=== PATIENT | female | born 1940 | race Caucasian/White ===

== ENCOUNTER 2017-09-29 22:24 | Inpatient (IN) ==
[2017-09-29 23:22] LABS: Basophils # 0.1 K/mcL (0.0-0.2); Basophils % 0.8 %; Eosinophils # 0.2 K/mcL (0.0-0.6); Eosinophils % 2.9 %; Hematocrit 26.1 % (35.3-44.9); Hemoglobin 8.7 g/dL (11.5-15.4); Immature Granulocytes % 0.2 % (0-4); Lymphocytes # 5.4 K/mcL (0.6-4.6); Lymphocytes % 65.1 %; Mean Corpuscular HGB Conc 33.3 g/dL (31.6-35.5); Mean Corpuscular Hemoglobin 37.7 pg (28.0-33.3); Mean Platelet Volume 8.4 fL (9.4-12.4); Monocytes % 11.8 %; Neutrophils # 1.6 K/mcL (1.6-8.9); Platelet Count 570 K/mcL (140-400); Red Blood Count 2.31 M/mcL (3.82-4.97); Red Cell Distribution Width 15.6 % (11.5-14.5); Segmented Neutrophils % 19.2 %
[2017-09-29 23:27] LABS: Prothrombin Time 10.9 Seconds (9.4-12.1)
[2017-09-29 23:30] LABS: Activated Partial Thrombo Time 28.6 Seconds (26.0-36.0)
[2017-09-29 23:36] LABS: BUN/Creatinine Ratio 28 (6-26); Blood Urea Nitrogen 25 mg/dL (7-20); Carbon Dioxide 20 mEq/L (19-29); Chloride 103 mEq/L (98-109); Glucose 115 mg/dL (70-99); Potassium 3.7 mEq/L (3.5-4.5); Sodium 134 mEq/L (136-145); eGFR For African Americans > 60 (> 60); eGFR For Non-African Americans > 60 (> 60)
[2017-09-29 23:37] LABS: Alanine Aminotransferase 18 Units/L (0-55); Albumin 3.8 g/dL (3.5-5.0); Albumin/Globulin Ratio 1.2 (1.1-2.2); Alkaline Phosphatase 80 Units/L (38-126); Aspartate Amino Transferase 19 Units/L (5-34); Bilirubin,Direct 0.2 mg/dL (0.0-0.5); Bilirubin,Indirect 0.1 mg/dL (0.0-1.2); Bilirubin,Total 0.3 mg/dL (0.2-1.2); Globulin 3.2 g/dL (2.4-3.5); Lipase 28 Units/L (8-78); Osmolality,Calculated 283 (280-300)
[2017-09-29 23:40] LABS: Platelet Estimate Increased (Normal)
[2017-09-29 23:41] LABS: Anisocytosis 1+ (Not Present); Hypochromasia Present (Not Present); Macrocytosis Present (Not Present); Microcytosis Present (Not Present)
--- NOTE | 2017-09-29 23:52 | Emergency Department Note ---
Disposition Clinical Impression: Chronic anemia, GI bleed, Cholelithiasis, External hemorrhoid, Diverticulosis Disposition: Admitted As Inpatient Condition: Good Referrals: Jamel Jacobo DO [Primary Care Provider] - Forms: ED Satisfaction Letter Time of Disposition: 01:28 GI Bleed HPI - General Chief complaint: ED GI Bleed Stated complaint: Rectal bleeding Time Seen by Provider: 09/29/17 22:55 Source: patient, family Limitations: no limitations Nursing Notes Reviewed: Yes Vital Signs Reviewed: Yes - History of Present Illness HPI Narrative: 77-year-old female presents to the emergency room for rectal bleeding. Onset earlier this evening. No history of this. States she went to the bathroom to urinate and passed a bunch of blood from her rectum into the toilet. She states it was bright red and slightly dark. Denies any clots. States she has a known hemorrhoid. She denies any blood from the vagina. She denies abdominal pain. No fevers or chills. No other complaints at this time. Patient has a history of chronic leukemia. She follows with hematology. She has had a previous workup for anemia as well. She denies any colonoscopy or EGD. She denies any peptic ulcer complaints. No heartburn. No upper GI problems. - Related Data Home Medications Medication Instructions Recorded Confirmed Amlodipine Besylate/Benazepril 1 each PO DAILY 09/05/17 09/14/17 [Lotrel 5-20 mg Capsule] Aspirin [Lo-Dose Aspirin EC] 81 mg PO DAILY 09/05/17 09/14/17 Benazepril HCl [Lotensin] 20 mg PO DAILY 09/05/17 09/14/17 Indapamide [Lozol] 2.5 mg PO DAILY 09/05/17 09/14/17 amLODIPine [Norvasc] 5 mg PO DAILY 09/05/17 09/14/17 Ferrous Sulfate [Iron] 325 mg PO DAILY 09/14/17 09/14/17 Allergies Allergy/AdvReac Type Severity Reaction Status Date / Time No Known Allergies Allergy Verified 09/05/17 10:48 Review of Systems: Gen.: No fevers or chills or new weakness Eyes: Denies double vision or any vision changes Ears: Denies any otalgia Pharynx: Denies sore throat CV: Denies chest pain. Denies palpitations Respiratory: Denies any cough or sputum production. No shortness of breath. GI: Denies any nausea, vomiting, diarrhea, constipation. Denies abdominal pain Neuro: Denies any headache. No problems with ambulation. No numbness. Skin: Denies any rashes or abrasions Psych: Denies any depression or suicidal or homicidal ideation Musculoskeletal: Denies any arthralgias or myalgias Past Medical History - Past Medical History Medical history: Reports: hypertension, renal disease Surgical history: Reports: VERONICA/BSO Psychiatric history: Reports: no psych history - Social History Smoking Status: Never smoker Smokeless Tobacco Status: No Alcohol use: Reports: none Drug use: Reports: none Physical Exam - General Limitations: no limitations General appearance: alert, in no apparent distress - Head Head exam: atraumatic, normocephalic - ENT ENT exam: normal exam, normal oropharynx - Neck Neck exam: Present: normal inspection - Chest Chest inspection: Present: normal inspection - Respiratory Respiratory exam: Present: normal lung sounds bilaterally. Absent: respiratory distress - Cardiovascular Cardiovascular exam: Present: regular rate, normal rhythm - Abdominal Exam Abdominal exam: Present: soft, Non-Tender, normal bowel sounds. Absent: tenderness, distention, guarding, rebound, diminished bowel sounds - Rectal Exam Systems Accountant present during exam: No Rectal exam: Present: normal rectal tone, heme (+) stool, other (You can see obvious maroon-colored blood around the rectal area. There is a hemorrhoid noted at the 11o'clock position. No active bleeding from that. That external hemorrhoid appears okay.) - Extremities Exam Extremities exam: Present: normal inspection - Expanded Lower Extremity Exam Hip/Pelvis exam: Present: normal inspection - Back Exam Back exam: Present: normal inspection - Neurological Exam Neurological exam: Present: alert, oriented X3 - Psychiatric Psychiatric exam: Present: normal affect, normal mood - Skin Skin exam: Present: warm, dry, intact Course Vital Signs Temperature 98.2 F 09/29/17 22:49 Pulse Rate 111 09/29/17 22:49 Respiratory Rate 18 09/29/17 22:49 Blood Pressure 147/75 09/29/17 22:49 O2 Sat by Pulse Oximetry 96 09/29/17 22:49 Temperature 98.2 F 09/29/17 22:49 Pulse Rate 111 09/29/17 22:49 Respiratory Rate 18 09/29/17 22:49 Blood Pressure 147/75 09/29/17 22:49 O2 Sat by Pulse Oximetry 96 09/29/17 22:49 Oxygen Delivery Oxygen Delivery Room Air GI Bleed - MDM Narrative Medical decision making narrative: CT shows no GI pathology other than she does have a gallstone. She does however have a possible ascending aneurysm in the chest. Also incidental note of possible pyelitis on the CT scan. I have ordered a urinalysis. Her H&H is stable for her. She is not hypotensive. She has no abdominal pain. I think based on her age and her complaint and the fact that she still having some GI bleeding that we admit the patient. Family was updated. She has ok with this plan. I did consult with the hospitalist as well. - Medical Records Medical records reviewed: Yes I reviewed the patient's medical records. - Lab Data Lab results reviewed: Yes I reviewed the patient's lab results. Result diagrams: 09/29/17 23:12 09/29/17 23:12 Lab Results 09/29/17 09/29/17 09/29/17 Range/Units 23:12 23:12 23:12 WBC 8.3 (4.3-11.1) K/mcL RBC 2.31 L (3.82-4.97) M/mcL Hgb 8.7 L (11.5-15.4) g/dL Hct 26.1 L (35.3-44.9) % MCV 113.0 H (83.0-100.0) fL MCH 37.7 H (28.0-33.3) pg MCHC 33.3 (31.6-35.5) g/dL RDW 15.6 H (11.5-14.5) % Plt Count 570 H (140-400) K/mcL MPV 8.4 L (9.4-12.4) fL Immature Gran % 0.2 (0-4) % Seg Neutrophils % 19.2 % Lymphocytes % 65.1 % Monocytes % 11.8 % Eosinophils % 2.9 % Basophils % 0.8 % Neutrophils # 1.6 (1.6-8.9) K/mcL Lymphocytes # 5.4 H (0.6-4.6) K/mcL Monocytes # 1.0 (0.0-1.3) K/mcL Eosinophils # 0.2 (0.0-0.6) K/mcL Basophils # 0.1 (0.0-0.2) K/mcL Platelet Estimate Increased H (Normal) Hypochromasia Present A (Not Present) Anisocytosis 1+ A (Not Present) Microcytosis Present A (Not Present) Macrocytosis Present A (Not Present) PT 10.9 (9.4-12.1) Seconds INR 1.0 APTT 28.6 (26.0-36.0) Seconds Sodium 134 L (136-145) mEq/L Potassium 3.7 (3.5-4.5) mEq/L Chloride 103 (98-109) mEq/L Carbon Dioxide 20 (19-29) mEq/L BUN 25 H (7-20) mg/dL Creatinine 0.89 (0.57-1.11) mg/dL Est GFR ( Amer) > 60 (> 60) Est GFR (Non-Af Amer) > 60 (> 60) BUN/Creatinine Ratio 28 H (6-26) Glucose 115 H (70-99) mg/dL Calculated Osmolality 283 (280-300) Calcium 9.0 (8.6-10.8) mg/dL Total Bilirubin 0.3 (0.2-1.2) mg/dL Direct Bilirubin 0.2 (0.0-0.5) mg/dL Indirect Bilirubin 0.1 (0.0-1.2) mg/dL AST 19 (5-34) Units/L ALT 18 (0-55) Units/L Alkaline Phosphatase 80 (38-126) Units/L Serum Total Protein 7.0 (6.0-8.3) g/dL Albumin 3.8 (3.5-5.0) g/dL Globulin 3.2 (2.4-3.5) g/dL Albumin/Globulin Ratio 1.2 (1.1-2.2) Lipase 28 (8-78) Units/L - Radiology Data Radiology results reviewed: Yes I reviewed the patient's radiology results. Critical Care Time Critical Care Time: No
[2017-09-30] MEDS ORDERED: Naloxone 0.4 MG/ML INJ IVP PRN (01:36)
[2017-09-30] MEDS: 0.9 % Sodium Chloride 1,000 ML IVC SCH (01:40)
[2017-09-30 01:42] LABS: Bilirubin,Urine Negative (Negative); Blood,Urine Trace (Negative); Clarity,Urine Clear (Clear); Color,Urine Yellow (Yellow); Glucose,Urine (UA) Normal (Normal); Ketones,Urine Negative (Negative); Leukocyte Esterase,Urine Small (Negative); Nitrite,Urine Negative (Negative); PH,Urine 6.5 pH Units (5.0-8.0); Protein,Urine Negative (Neg-Trace); Specific Gravity,Urine 1.029 (1.010-1.025); Urobilinogen,Urine Normal (Normal)
--- NOTE | 2017-09-30 01:42 | Internal Med History&Physical ---
Date of Encounter: 09/30/17 Time of Encounter: 01:40 Assessment and Plan (1) GI bleed Current visit: Yes Status: Acute trend H&H possible internal hemorrhoid vs. diverticular ?? Consult GI to eval Clears IVF close monitoring inpatient Qualifiers: GI bleed type/associated pathology: anorectal hemorrhage Qualified Code(s) : K62.5 - Hemorrhage of anus and rectum (2) HTN (hypertension), benign Current visit: Yes Status: Acute continue anti-HTN (3) Iron deficiency anemia Current visit: No Status: Acute hold home Fe while inpatient Qualifiers: Iron deficiency anemia type: other iron deficiency Qualified Code(s): D50.8 - Other iron deficiency anemias (4) Pyelitis Current visit: Yes Status: Acute on CT imaging, does not appear to have clinical correlate monitor for now (5) Abdominal aneurysm Current visit: Yes Status: Acute outpatient eval (6) Liver lesion Current visit: Yes Status: Acute incidentalomas in liver and adrenal. follow up outpatient. Internal Medicine - H&P: HPI Chief complaint: rectal bleed History of present illness: Ms. Danielle is a 77 year old female who presents with acute LGIB, rectal bleed. She developed red, BRBPR this afternoon. Had several episodes after leading to presentation to the ED. Denies clots. Denies BM with bleeding. Reports episodes with urination as well. Denies prior hx of C-scope. PMH significant for some Fe deficiency anemia and T-LGL seeing oncology. CT/CT abd pelvis w iv no oral IMPRESSION: 1. Diverticulosis without scan evidence for diverticulitis. 2. Partially imaged is what appears to be an aneurysm of the ascending aorta. Contrast-enhanced chest CT is recommended for further evaluation. 3. Bilateral urothelial enhancement suggests pyelitis. 4. Possible bladder prolapse. 5. The low-density liver lesions and the left adrenal gland lesion are indeterminate. 6. Cholelithiasis without evidence for acute cholecystitis. Past Med Surg Social Fam HX - Past Medical History Medical history: hypertension, renal disease Psychiatric history: no psych history - Past Surgical History Surgical History: VERONICA/BSO - Social History Smoking Status: Never smoker Smokeless Tobacco Status: No Alcohol use: none Drug use: none Internal Medicine - H&P: Meds Amlodipine Besylate/Benazepril [Lotrel 5-20 mg Capsule] 1 each PO DAILY [History] Aspirin [Lo-Dose Aspirin EC] 81 mg PO DAILY 09/05/17 [History] Benazepril HCl [Lotensin] 20 mg PO DAILY 09/05/17 [History] Indapamide [Lozol] 2.5 mg PO DAILY 09/05/17 [History] amLODIPine [Norvasc] 5 mg PO DAILY 09/05/17 [History] Ferrous Sulfate [Iron] 325 mg PO DAILY 09/14/17 [History] 3 Allergy/AdvReac Type Severity Reaction Status Date / Time No Known Allergies Allergy Verified 09/05/17 10:48 All Systems PM: A 10-system review of systems was performed and is negative for pertinent findings except as documented above in the HPI. Review of systems: ROS 14 point review of systems reviewed as best as possible given presentation. Pertinent positive or negative as per HPI or otherwise reviewed as negative - Constitutional Vitals: Temp Pulse Resp BP Pulse Ox 98.2 F 111 18 147/75 96 09/29/17 22:49 09/29/17 22:49 09/29/17 22:49 09/29/17 22:49 09/29/17 22:49 Exam: General - AAO x 3 Psych - Appropriate affect/speech. No agitation Eyes - JOHANNA. Eye lids intact. No scleral icterus Heart - Sinus. RRR. S1 and S2 present. No added HS/murmurs appreciated. No elevated JVD appreciated. Lung - Adequate air entry b/l, No crackles/wheezes appreciated GI - Soft, non-tender. No hepatosplenomegaly/ascites. BS+ - No CVA/suprapubic tenderness or palpable bladder distension Skin - Intact. No rash/petechiae/ecchymosis. Warm extremities MSK - Joints with normal ROM. No joint swellings Internal Med - H&P Results - Labs CBC & Chem 7: 09/29/17 23:12 09/29/17 23:12 - Impressions ITS Impressions Abdomen/Pelvis CT 09/30/17 23:47 IMPRESSION: 1. Diverticulosis without scan evidence for diverticulitis. 2. Partially imaged is what appears to be an aneurysm of the ascending aorta. Contrast-enhanced chest CT is recommended for further evaluation. 3. Bilateral urothelial enhancement suggests pyelitis. 4. Possible bladder prolapse. 5. The low-density liver lesions and the left adrenal gland lesion are indeterminate. 6. Cholelithiasis without evidence for acute cholecystitis. D/ / Praneeth Khan MD / Praneeth Khan MD Interpreting Provider: Praneeth Khan MD
[2017-09-30 01:44] LABS: Bacteria,Urine Many per hpf (None-Few); Hyaline Casts,Urine None Seen per lpf (None-Few); RBC,Urine 0-3 per hpf (0-3); Squamous Epithelial Cell,Urine Moderate per lpf (None-Few)
[2017-09-30 06:53] LABS: Hematocrit 22.2 % (35.3-44.9); Hemoglobin 7.5 g/dL (11.5-15.4)
[2017-09-30] MEDS ORDERED: *HR* Midazolam HCl 5 MG/5 ML VIAL IVP ONE ×2 (07:30→08:24)
[2017-09-30] MEDS ORDERED: *HR* FentaNYL (PF) 100 MCG/2 ML VIAL ONE (07:30)
[2017-09-30] MEDS ORDERED: Tetracaine/Benzocaine/Butamben 200MG/SPRAY (100SPY/BOT) MM ONE (08:24)
[2017-09-30] MEDS ORDERED: Simethicone 40 MG/0.6 ML MLS IR ONE (08:24)
[2017-09-30] MEDS ORDERED: *HR* FentaNYL (PF) 100 MCG/2 ML VIAL IVP ONE (08:24)
[2017-09-30] MEDS ORDERED: SODIUM CHLORIDE/NAHCO3/KCL/PEG 4,000 ML SOLN.RECON PO ONE (09:03)
--- NOTE | 2017-09-30 09:47 | Gastroenterology Consult Note ---
Date of Encounter: 10/01/17 Time of Encounter: 08:15 - Time Spent With Patient Total time spent is greater than 50% in coordination of care (as documented) at patient's floor/unit and/or counseling patient: ' 1. Hematochezia: Plan EGD today and colonoscopy tomorrow. Differential diagnosis wide. Follow H/H closely. Discussed plan with patient and her daughter, Radha. 2. Hypertension 3. Anxiety 4. Incomplete database GI History of Present Illness - Data of Consult Requesting Physician: Umm Weeks MD - Consult Narrative History of present illness: Ms. Danielle is a 77 year old female who presents with several episodes of hematochezia (burgundy mixed with BRBPR) over the past 24 hours. No dizziness or chest pain or syncope. No UGI symptoms. Never had colonoscopy. Youngest sister had renal cancer. 5 children oldest in MVA. Baby ASA once daily. No family hx of IBD Past Med Surg Social Fam HX - Past Medical History Medical history: hypertension, renal disease Psychiatric history: no psych history - Past Surgical History Surgical History: VERONICA/BSO - Social History Smoking Status: Never smoker Smokeless Tobacco Status: No Alcohol use: none Drug use: none - Family History Sister Hx Family Endocrine Disorder: Yes (Kidney cancer) Mother Hx Family Cancer: Yes (Breast cancer) - Gastrointestinal Gastrointestinal: Present: hematochezia - Endocrine Endocrine IM: Present: fatigue - Constitutional Vitals: Temp Pulse Resp BP Pulse Ox 98.6 F 92 16 129/62 95 09/30/17 07:39 09/30/17 08:44 09/30/17 08:44 09/30/17 08:44 09/30/17 08:44 - Eye Eye exam: Present: EOMI, PERRL Additional comments: pallor mild - GI/Abdominal GI/Abdominal exam: Present: soft Results - Labs CBC & Chem 7: 10/01/17 12:00 09/29/17 23:12 Labs: Last Result Calcium 9.0 mg/dL (8.6-10.8) 09/29/17 23:12 Entire Visit Hgb 7.5 g/dL (11.5-15.4) L 09/30/17 06:43 Hct 22.2 % (35.3-44.9) L 09/30/17 06:43 PT 10.9 Seconds (9.4-12.1) 09/29/17 23:12 Total Bilirubin 0.3 mg/dL (0.2-1.2) 09/29/17 23:12 AST 19 Units/L (5-34) 09/29/17 23:12 ALT 18 Units/L (0-55) 09/29/17 23:12 Lipase 28 Units/L (8-78) 09/29/17 23:12 - ABG ABG results: PT/INR, D-dimer PT 10.9 Seconds (9.4-12.1) 09/29/17 23:12 - Impressions Impressions Abdomen/Pelvis CT 09/30/17 23:47 IMPRESSION: 1. Diverticulosis without scan evidence for diverticulitis. 2. Partially imaged is what appears to be an aneurysm of the ascending aorta. Contrast-enhanced chest CT is recommended for further evaluation. 3. Bilateral urothelial enhancement suggests pyelitis. 4. Possible bladder prolapse. 5. The low-density liver lesions and the left adrenal gland lesion are indeterminate. 6. Cholelithiasis without evidence for acute cholecystitis. D/ / Praneeth Khan MD / Praneeth Khan MD Interpreting Provider: Praneeth Khan MD Consult Discharge Plan - Plan Referrals: Jamel Jacobo DO [Primary Care Provider] -
[2017-09-30 11:57] LABS: Hematocrit 23.4 % (35.3-44.9); Hemoglobin 7.8 g/dL (11.5-15.4)
[2017-09-30] MEDS: amLODIPine 5 MG TABLET PO SCH ×2 (12:08→12:09)
[2017-09-30] MEDS: Lisinopril 20 MG TABLET PO SCH (12:09)
[2017-09-30 14:26] LABS: % Iron Saturation 49 % (15-50); Iron 125 mcg/dL (50-170); Transferrin 182 mg/dL (180-382)
--- NOTE | 2017-09-30 15:16 | Internal Med Progress Note ---
Date of Encounter: 09/30/17 Time of Encounter: 13:00 - Assessment and plan (1) GI bleed Current Visit: Yes Status: Acute Assessment and plan: Acute Lower GI bleed possible due to hemmorhoids however CT showed diverticulosis too.. concerned for diverituclar bleeding cont close monitoring Hb scheduled for Colonoscopy in AM Qualifiers: GI bleed type/associated pathology: anorectal hemorrhage Qualified Code(s) : K62.5 - Hemorrhage of anus and rectum (2) Anemia Current Visit: No Status: Acute Assessment and plan: Baseline around 9.5 today her Hb @ 7.5 cont close monitoring will transfuse if Hb < 7.0 s/p EGD- gastritis only cont PPI Qualifiers: Other causes of anemia: acute posthemorrhagic Qualified Code(s): D62 - Acute posthemorrhagic anemia (3) Cholelithiasis Current Visit: Yes Status: Chronic Assessment and plan: mostly chronic no acute RUQ pain need out pt f/u Qualifiers: Qualified Code(s): K80.20 - Calculus of gallbladder without cholecystitis without obstruction (4) External hemorrhoid Current Visit: Yes Status: Acute (5) Diverticulosis Current Visit: Yes Status: Acute Assessment and plan: no pain..no signs of inf no need of abx Qualifiers: Qualified Code(s): K57.10 - Diverticulosis of small intestine without perforation or abscess without bleeding (6) HTN (hypertension), benign Current Visit: Yes Status: Acute Assessment and plan: resumed home meds (7) Pyelitis Current Visit: Yes Status: Acute Assessment and plan: incidental finding UA- bacteria + WBC++ will start her on empirical abx and f/u on urine cx (8) Iron deficiency anemia Current Visit: No Status: Chronic Assessment and plan: check iron levels in AM Qualifiers: Iron deficiency anemia type: other iron deficiency Qualified Code(s): D50.8 - Other iron deficiency anemias - Subjective Interval history: Ms. Danielle is a 77 year old female with known PMH of HTN, T cell large granular leukemia, chronic Iron def anemia who follows with Heme Onc and gets frequent IV Iron transfusion, who presented to ER with rectal bleed BRBPR started y/d. Had several episodes after leading to presentation to the ED. She just came back from EGD. Denied any more diarrhea. She denied any abdominal pain. - Constitutional Vitals: Temp Pulse Resp BP Pulse Ox 97.7 F 91 16 130/73 94 09/30/17 12:39 09/30/17 12:39 09/30/17 12:39 09/30/17 12:39 09/30/17 12:39 General appearance: Present: A&O X 3, no acute distress, answers questions appropriately - Head Head exam: Present: atraumatic, normal inspection - Neck Neck exam general surgery: Present: supple - Cardiovascular Cardiovascular exam: Present: RRR, +S1, +S2. Absent: systolic murmur - GI/Abdominal GI/Abdominal exam: Present: normal bowel sounds, soft. Absent: pulsatile mass, rigid, tenderness - Extremities Exam Extremities exam: Absent: calf tenderness, pedal edema, tenderness - Back Exam Back exam: Absent: CVA tenderness (L), CVA tenderness (R) - Neurological Exam Neurological exam: Present: alert, oriented X3 - Psychiatric Psychiatric exam: Present: normal affect, normal mood Internal Medicine: Result - Labs CBC & Chem 7: 09/30/17 11:47 09/29/17 23:12 Labs: Short CBC 09/30/17 09/30/17 Range/Units 06:43 11:47 Hgb 7.5 L 7.8 L (11.5-15.4) g/dL Hct 22.2 L 23.4 L (35.3-44.9) % - ABG Interpretation ABG results: PT/INR, D-dimer PT 10.9 Seconds (9.4-12.1) 09/29/17 23:12 - Impressions Impressions Abdomen/Pelvis CT 09/30/17 23:47 IMPRESSION: 1. Diverticulosis without scan evidence for diverticulitis. 2. Partially imaged is what appears to be an aneurysm of the ascending aorta. Contrast-enhanced chest CT is recommended for further evaluation. 3. Bilateral urothelial enhancement suggests pyelitis. 4. Possible bladder prolapse. 5. The low-density liver lesions and the left adrenal gland lesion are indeterminate. 6. Cholelithiasis without evidence for acute cholecystitis. D/ / Praneeth Khan MD / Praneeth Khan MD Interpreting Provider: Praneeth Khan MD Consult Discharge Plan - Plan Referrals: Jamel Jacobo DO [Primary Care Provider] -
[2017-09-30 18:37] LABS: Hematocrit 25.6 % (35.3-44.9); Hemoglobin 8.8 g/dL (11.5-15.4)
[2017-10-01 01:18] LABS: Hematocrit 23.3 % (35.3-44.9); Hemoglobin 7.9 g/dL (11.5-15.4)
[2017-10-01] MEDS: 0.9 % Sodium Chloride 1,000 ML IVC SCH ×2 (05:05→19:20)
[2017-10-01] MEDS ORDERED: *HR* Midazolam HCl 5 MG/5 ML VIAL IVP ONE ×2 (07:50→08:29)
[2017-10-01] MEDS ORDERED: *HR* FentaNYL (PF) 100 MCG/2 ML VIAL ONE (07:51)
[2017-10-01] MEDS ORDERED: Simethicone 40 MG/0.6 ML MLS IR ONE (08:29)
[2017-10-01] MEDS ORDERED: *HR* FentaNYL (PF) 100 MCG/2 ML VIAL IVP ONE (08:29)
--- NOTE | 2017-10-01 08:30 | History & Physical Report ---
Date of Encounter: 10/01/17 Time of Encounter: 08:30 24 Hour HP Update - Instructions Instructions: If the History and Physical is less than 30 days old and was completed prior to A.M. admission and or procedure and has NOT been updated on calendar day of procedure please complete this update prior to performing procedure. - Update Patient reports changes in Medical Condition: No Changes in examination, assessment, or condition: No Changes in Medication: No Preop tests/diagnostics Reviewed: Yes Surgery Remains Indicated: Yes Consent for Planned Operative Procedure(s) Verified: Yes - Pre-Operative Checklist Preoperative Checklist Indicated: Yes Prophylactic Antibiotic Ordered: No
[2017-10-01 08:53] LABS: Hematocrit 23.6 % (35.3-44.9)
[2017-10-01] MEDS: amLODIPine 5 MG TABLET PO SCH ×2 (10:55)
[2017-10-01] MEDS: Lisinopril 20 MG TABLET PO SCH (10:55)
[2017-10-01 12:14] LABS: Hematocrit 23.2 % (35.3-44.9); Hemoglobin 7.9 g/dL (11.5-15.4)
--- NOTE | 2017-10-01 15:39 | Internal Med Progress Note ---
Date of Encounter: 10/01/17 Time of Encounter: 15:34 - Assessment and plan (1) GI bleed Current Visit: Yes Status: Acute Assessment and plan: Acute Lower GI bleed s/p colonoscopy showed diverticulosis and internal hemorrhoid bleeding, however CT showed diverticulosis too.. concerned for diverituclar bleeding cont close monitoring Hb- so far stable Hb @ 7.9 Qualifiers: GI bleed type/associated pathology: anorectal hemorrhage Qualified Code(s) : K62.5 - Hemorrhage of anus and rectum (2) Anemia Current Visit: No Status: Acute Assessment and plan: Baseline around 9.5 today her Hb @ 7.9 cont close monitoring will transfuse if Hb < 7.0 s/p EGD- gastritis only s/p Colonocospy cont PPI Reviewed Iron studies.. No need of Iron supplements Qualifiers: Other causes of anemia: acute posthemorrhagic Qualified Code(s): D62 - Acute posthemorrhagic anemia (3) Cholelithiasis Current Visit: Yes Status: Chronic Assessment and plan: mostly chronic no acute RUQ pain need out pt f/u Qualifiers: Qualified Code(s): K80.20 - Calculus of gallbladder without cholecystitis without obstruction (4) External hemorrhoid Current Visit: Yes Status: Acute (5) Diverticulosis Current Visit: Yes Status: Acute Assessment and plan: no pain..no signs of inf no need of abx Qualifiers: Qualified Code(s): K57.10 - Diverticulosis of small intestine without perforation or abscess without bleeding (6) HTN (hypertension), benign Current Visit: Yes Status: Acute Assessment and plan: resumed home meds (7) Pyelitis Current Visit: Yes Status: Acute Assessment and plan: incidental finding UA- bacteria + WBC++ will start her on empirical abx and f/u on urine cx (8) Iron deficiency anemia Current Visit: No Status: Chronic Assessment and plan: Reviewed Iron studies..WNL Qualifiers: Iron deficiency anemia type: other iron deficiency Qualified Code(s): D50.8 - Other iron deficiency anemias - Subjective Interval history: Ms. Danielle is a 77 year old female with known PMH of HTN, T cell large granular leukemia, chronic Iron def anemia who follows with Heme Onc and gets frequent IV Iron transfusion, who presented to ER with rectal bleed BRBPR started y/d. Had several episodes after leading to presentation to the ED. She just came back from Colonoscopy. She denied any abdominal pain. still has some oozing / blood in her stool. - Constitutional Vitals: Temp Pulse Resp BP Pulse Ox 97.9 F 94 16 116/66 96 10/01/17 15:22 10/01/17 15:22 10/01/17 15:22 10/01/17 15:22 10/01/17 15:22 General appearance: Present: A&O X 3, no acute distress, answers questions appropriately - Head Head exam: Present: atraumatic, normal inspection - Neck Neck exam general surgery: Present: supple - Respiratory Respiratory exam: Present: decreased breath sounds. Absent: rales, respiratory distress, rhonchi, wheezes - Cardiovascular Cardiovascular exam: Present: RRR, +S1, +S2. Absent: diastolic murmur, gallop, rubs, systolic murmur - GI/Abdominal GI/Abdominal exam: Present: normal bowel sounds, soft. Absent: rebound, rigid, tenderness - Extremities Exam Extremities exam: Absent: calf tenderness, pedal edema, tenderness - Neurological Exam Neurological exam: Present: alert, oriented X3 - Psychiatric Psychiatric exam: Present: normal affect, normal mood Internal Medicine: Result - Labs CBC & Chem 7: 10/01/17 12:00 09/29/17 23:12 Labs: Short CBC 09/30/17 10/01/17 10/01/17 Range/Units 18:16 01:07 07:55 Hgb 8.8 L 7.9 L 8.0 L (11.5-15.4) g/dL Hct 25.6 L 23.3 L 23.6 L (35.3-44.9) % 10/01/17 Range/Units 12:00 Hgb 7.9 L (11.5-15.4) g/dL Hct 23.2 L (35.3-44.9) % - ABG Interpretation ABG results: PT/INR, D-dimer PT 10.9 Seconds (9.4-12.1) 09/29/17 23:12 Consult Discharge Plan - Plan Referrals: Jamel Jacobo DO [Primary Care Provider] -
[2017-10-01 18:32] LABS: Hematocrit 23.5 % (35.3-44.9); Hemoglobin 8.1 g/dL (11.5-15.4)
[2017-10-02 07:27] VITALS: BP 146/73
--- NOTE | 2017-10-02 09:04 | Gastroenterology Progress Note ---
Date of Encounter: 10/02/17 Time of Encounter: 08:20 - Time Spent With Patient Total time spent is greater than 50% in coordination of care (as documented) at patient's floor/unit and/or counseling patient: - Subjective Interval history: Ms. Danielle is a 77 year old female with known PMH of HTN, T cell large granular leukemia, chronic Iron def anemia who follows with Heme Onc and gets frequent IV Iron transfusion, who presented to ER with rectal bleed BRBPR started y/d. Had several episodes after leading to presentation to the ED. She just came back from Colonoscopy. She denied any abdominal pain. still has some oozing / blood in her stool. Doing well - no problems. No further bleeding. Hemoglobin 8.1 this morning. ( 7.9 yest) tolerating diet. She can go home. Needs Iron and MVI. Recheck hemoglobin in a week and follow up with me then. - Constitutional Vitals: Temp Pulse Resp BP Pulse Ox 98.1 F 97 14 146/73 98 10/02/17 07:26 10/02/17 07:26 10/02/17 07:26 10/02/17 07:26 10/02/17 07:26 - Eye Eye exam: Present: EOMI, PERRL Additional comments: pallor marked - GI/Abdominal GI/Abdominal exam: Present: soft Additional comments: Non tender, good bowel sounds. No masses Results - Labs CBC & Chem 7: 10/01/17 18:06 09/29/17 23:12 Labs: Last Result Calcium 9.0 mg/dL (8.6-10.8) 09/29/17 23:12 Iron 125 mcg/dL (50-170) 09/30/17 13:59 % Saturation 49 % (15-50) 09/30/17 13:59 Transferrin 182 mg/dL (180-382) 09/30/17 13:59 Stool Occult Blood Negative (Negative) 09/30/17 21:50 Entire Visit Hgb 8.1 g/dL (11.5-15.4) L 10/01/17 18:06 Hct 23.5 % (35.3-44.9) L 10/01/17 18:06 PT 10.9 Seconds (9.4-12.1) 09/29/17 23:12 Total Bilirubin 0.3 mg/dL (0.2-1.2) 09/29/17 23:12 AST 19 Units/L (5-34) 09/29/17 23:12 ALT 18 Units/L (0-55) 09/29/17 23:12 Lipase 28 Units/L (8-78) 09/29/17 23:12 - ABG ABG results: PT/INR, D-dimer PT 10.9 Seconds (9.4-12.1) 09/29/17 23:12 Consult Discharge Plan - Plan Referrals: Jamel Jacobo DO [Primary Care Provider] -
[2017-10-02 09:50] LABS: Basophils # 0.1 K/mcL (0.0-0.2); Basophils % 1.2 %; Eosinophils # 0.1 K/mcL (0.0-0.6); Eosinophils % 1.9 %; Hematocrit 25.2 % (35.3-44.9); Hemoglobin 8.5 g/dL (11.5-15.4); Immature Granulocytes % 0.2 % (0-4); Lymphocytes # 3.9 K/mcL (0.6-4.6); Lymphocytes % 65.3 %; Mean Corpuscular HGB Conc 33.7 g/dL (31.6-35.5); Mean Corpuscular Hemoglobin 38.1 pg (28.0-33.3); Mean Platelet Volume 8.4 fL (9.4-12.4); Monocytes # 0.7 K/mcL (0.0-1.3); Monocytes % 12.5 %; Neutrophils # 1.1 K/mcL (1.6-8.9); Platelet Count 554 K/mcL (140-400); Red Blood Count 2.23 M/mcL (3.82-4.97); Red Cell Distribution Width 15.6 % (11.5-14.5); Segmented Neutrophils % 18.9 %
[2017-10-02] MEDS: amLODIPine 5 MG TABLET PO SCH (09:58)
[2017-10-02] MEDS: Lisinopril 20 MG TABLET PO SCH (09:58)
[2017-10-02 10:12] LABS: Platelet Estimate Marked Increase (Normal)
[2017-10-02 10:13] LABS: Macrocytosis Present (Not Present); Poikilocytosis 1+ (Not Present)
[2017-10-02 10:14] LABS: Ovalocytes 1+ (Not Present)
--- NOTE | 2017-10-02 10:25 | Discharge Summary ---
Date of Encounter: 10/02/17 Time of Encounter: 10:20 - Discharge Diagnosis (1) GI bleed Priority: Primary Status: Acute Qualifiers: GI bleed type/associated pathology: anorectal hemorrhage Qualified Code(s) : K62.5 - Hemorrhage of anus and rectum (2) Anemia Priority: Primary Status: Acute Qualifiers: Other causes of anemia: acute posthemorrhagic Qualified Code(s): D62 - Acute posthemorrhagic anemia (3) Cholelithiasis Priority: Secondary Status: Chronic Qualifiers: Qualified Code(s): K80.20 - Calculus of gallbladder without cholecystitis without obstruction (4) External hemorrhoid Priority: Secondary Status: Acute (5) Diverticulosis Priority: Secondary Status: Acute Qualifiers: Qualified Code(s): K57.10 - Diverticulosis of small intestine without perforation or abscess without bleeding (6) HTN (hypertension), benign Priority: Secondary Status: Acute (7) Pyelitis Priority: Secondary Status: Acute (8) Iron deficiency anemia Priority: Secondary Status: Chronic Qualifiers: Iron deficiency anemia type: other iron deficiency Qualified Code(s): D50.8 - Other iron deficiency anemias - Discharge Medications Home Medications: Benazepril HCl [Lotensin] 30 mg PO DAILY 09/05/17 [History] Indapamide [Lozol] 2.5 mg PO DAILY 09/05/17 [History] amLODIPine [Norvasc] 5 mg PO DAILY 09/05/17 [History] Allergies/Adverse Reactions: 3 Allergy/AdvReac Type Severity Reaction Status Date / Time No Known Allergies Allergy Verified 09/05/17 10:48 Date of admission: 09/30/17 01:36 Primary care physician: Jamel Jacobo DO Consults: 09/30/17 01:39 Consult to Gastroenterology [CONS] Routine Consulting Provider: Gastroenterology [facility] Reason for Consult: rectal bleed painless Call Completed: No - Patient Status Disposition: Home, Self-Care Condition: Good Overall status at discharge: patient is back to baseline - Discharge Instructions Follow Up With: Jamel Jacobo DO [Primary Care Provider] - Yefri Carrasquillo MD [Partnered Physician] - Additional Instructions: Please stop taking Aspirin for another week until you f/u with your PCP - Diet and Activity Activity: increase activity as tolerated Diet: advance to your usual diet, other (Soft/ bland diet for 2 days) Hospital course: Ms. Danielle is a 77 year old female with known PMH of HTN, T cell large granular leukemia, chronic Iron def anemia who follows with Heme Onc and gets frequent IV Iron transfusion, who presented to ER with rectal bleed BRBPR . Pt was admitted in the hospital and monitored her Hb closely. Her Hb stayed stable around 8.5. She did go for EGD which showed gastritis only. She did go for Colonoscopy which showed diverticulosis with no bleed and no signs of infection. however she did have bleeding internal hemorrhoid. So we continued monitoring her closely. She still have mild oozing / blood in her stool, however overall improving. She is tolerating PO intake well too. So will d/c her home today in stable condition. Recommend to f/u with PCP as an out pt. - Time Spent with Patient Total time spent providing and/or coordinating discharge services: - Constitutional Vitals: Temp Pulse Resp BP Pulse Ox 98.1 F 97 14 146/73 98 10/02/17 07:26 10/02/17 07:26 10/02/17 07:26 10/02/17 07:26 10/02/17 07:26 General appearance: Present: A&O X 3, no acute distress, answers questions appropriately - Head Head exam: Present: atraumatic, normal inspection - Respiratory Respiratory exam: Absent: respiratory distress - Cardiovascular Cardiovascular exam: Present: +S1, +S2 - GI/Abdominal GI/Abdominal exam: Present: soft. Absent: rebound, rigid, tenderness - Extremities Exam Extremities exam: Absent: calf tenderness, pedal edema, tenderness - Neurological Exam Neurological exam: Present: alert, oriented X3 - Psychiatric Psychiatric exam: Present: normal affect, normal mood
== END 2017-10-02 10:55 | disposition home or self-care (01) | DRG 378 ==
LOC: EMEROO 22:24 → 3ANU 22:24
PROVIDERS: ADMIT Internal Medicine Hematology & Oncology; ATTEND Family Medicine
PROC: ENDOEBX (2017-09-30 08:00)